=== PATIENT | female | born 1990 | race Caucasian/White ===

== ENCOUNTER → 2019-09-18 | Outpatient (CLI) | payer BC | END | disposition home or self-care (01) | LOC: PREOP 05:42 | PROVIDERS: ATTEND Surgery | DX: Z01.818 Encounter for other preprocedural examination (principal) ==

== ENCOUNTER 2023-07-25 20:56 | Observation (INO) | payer SELFPAY ==
[~2023-07-25] VITALS: Ht 157.5 cm; Wt 80.0 kg
[2023-07-25] MEDS ORDERED: LACTATED RINGERS 1,000 ML 1,000 ML IV ONE (21:45)
[2023-07-25 21:50] LABS: BASOPHILS # (AUTO) 0.1 10^3/uL (0.0-0.1); BASOPHILS % (AUTO) 1 % (0-10); EOSINOPHILS # (AUTO) 0.1 10^3/uL (0.0-0.3); EOSINOPHILS % (AUTO) 0 % (0-10); HEMATOCRIT 46 % (35-52); HEMOGLOBIN 15.1 g/dL (11.5-16.0); LYMPHOCYTES # (AUTO) 2.6 10^3/uL (1.0-4.0); LYMPHOCYTES % (AUTO) 17 % (12-44); MEAN CORPUSCULAR HEMOGLOBIN 28 pg (25-34); MEAN CORPUSCULAR HGB CONC 33 g/dL (32-36); MEAN CORPUSCULAR VOLUME 85 fL (80-99); MEAN PLATELET VOLUME 12.5 fL (9.0-12.2); MONOCYTES # (AUTO) 1.2 10^3/uL (0.0-1.0); MONOCYTES % (AUTO) 8 % (0-12); NEUTROPHILS # (AUTO) 11.3 10^3/uL (1.8-7.8); NEUTROPHILS % (AUTO) 74 % (42-75); PLATELET COUNT 262 10^3/uL (130-400); WHITE BLOOD COUNT 15.3 10^3/uL (4.3-11.0)
[2023-07-25 22:06] LABS: CLARITY,URINE SLIGHTLY CLOUDY; COLOR,URINE ORANGE; GLUCOSE, URINE (UA) NEGATIVE (NEGATIVE); KETONES,URINE TRACE (NEGATIVE); NITRITE,URINE NEGATIVE (NEGATIVE); PH,URINE 5.5 (5-9); PROTEIN,URINE 2+ (NEGATIVE)
[2023-07-25 22:07] LABS: BACTERIA,URINE MODERATE /HPF; BILIRUBIN,URINE 1+ (NEGATIVE); LEUKOCYTE ESTERASE ,URINE TRACE (NEGATIVE); SQUAMOUS EPITHELIAL CELL,UR 0-2 /HPF
[2023-07-25 22:12] LABS: ALANINE AMINOTRANSFERASE 34 U/L (0-55); ALBUMIN 4.4 GM/DL (3.2-4.5); ALKALINE PHOSPHATASE 104 U/L (40-136); BILIRUBIN,TOTAL 0.6 MG/DL (0.1-1.0); BUN/CREATININE RATIO 6; CALCIUM 9.9 MG/DL (8.5-10.1); CARBON DIOXIDE 20 MMOL/L (21-32); CHLORIDE 103 MMOL/L (98-107); CREATININE SERUM 0.96 MG/DL (0.60-1.30); GFR ESTIMATED 81; GLUCOSE 98 MG/DL (70-105); POTASSIUM 3.6 MMOL/L (3.6-5.0); SALICYLATE < 5.0 MG/DL (5.0-20.0); SODIUM 137 MMOL/L (135-145); TOTAL PROTEIN 7.6 GM/DL (6.4-8.2)
[2023-07-25 22:12] LABS: AMPHETAMINE SCREEN, URINE NEGATIVE (NEGATIVE); BARBITURATE SCREEN URINE NEGATIVE (NEGATIVE); CANNABINOID SCREEN, URINE POSITIVE (NEGATIVE); COCAINE SCREEN URINE NEGATIVE (NEGATIVE); METHADONE STAT NEGATIVE (NEGATIVE); OPIATE SCREEN URINE NEGATIVE (NEGATIVE); OXYCODONE STAT NEGATIVE (NEGATIVE); PROPOXYPHENE STAT NEGATIVE (NEGATIVE); TRICYCLIC ANTIDEPRESSANTS SCRE NEGATIVE (NEGATIVE)
[2023-07-25 22:19] LABS: ACETAMINOPHEN < 10 UG/ML (10-30)
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
[2023-07-25 22:32] LABS: TSH (THYROID ANALYZER) 2.16 UIU/ML (0.35-4.94)
[2023-07-25] MEDS ORDERED: cefTRIAXone IV/IM 1,000 MG in NS (IVPB) 50 ML 50 ML IV STA (22:44)
[2023-07-25 22:54] LABS: INR 0.9 (0.8-1.4); PROTHROMBIN TIME PATIENT 12.7 SEC (12.2-14.7)
[2023-07-26] MEDS ORDERED: LACTATED RINGERS 1,000 ML 1,000 ML IV ONE (02:00)
[2023-07-26] MEDS ORDERED: LIDOCAINE 1% INJ 10 ML VIAL ONE (03:13)
[2023-07-26] MEDS ORDERED: cefTRIAXone IV/IM 1,000 MG in NS (IVPB) 50 ML 50 ML IV STA (03:52)
[2023-07-26] MEDS ORDERED: LACTATED RINGERS 1,000 ML 1,000 ML IV SCH (05:15)
[2023-07-26] MEDS ORDERED: ONDANSETRON INJECTION 4 MG/2 ML (SDV) IV PRN ×2 (05:15→11:30)
[2023-07-26 06:55] LABS: EOSINOPHILS % (AUTO) 0 % (0-10); HEMOGLOBIN 13.6 g/dL (11.5-16.0)
[2023-07-26 06:56] LABS: BASOPHILS # (AUTO) 0.1 10^3/uL (0.0-0.1); BASOPHILS % (AUTO) 0 % (0-10); HEMATOCRIT 41 % (35-52); LYMPHOCYTES # (AUTO) 2.7 10^3/uL (1.0-4.0); LYMPHOCYTES % (AUTO) 20 % (12-44); MEAN CORPUSCULAR HEMOGLOBIN 28 pg (25-34); MEAN CORPUSCULAR HGB CONC 33 g/dL (32-36); MEAN CORPUSCULAR VOLUME 85 fL (80-99); MONOCYTES # (AUTO) 1.1 10^3/uL (0.0-1.0); MONOCYTES % (AUTO) 9 % (0-12); NEUTROPHILS # (AUTO) 9.6 10^3/uL (1.8-7.8); NEUTROPHILS % (AUTO) 71 % (42-75); PLATELET COUNT 217 10^3/uL (130-400); WHITE BLOOD COUNT 13.5 10^3/uL (4.3-11.0)
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
[2023-07-26 07:21] LABS: ALBUMIN 3.9 GM/DL (3.2-4.5); BILIRUBIN,TOTAL 0.6 MG/DL (0.1-1.0); CALCIUM 9.1 MG/DL (8.5-10.1); CREATININE SERUM 0.82 MG/DL (0.60-1.30); MAGNESIUM 1.5 MG/DL (1.6-2.4); PHOSPHORUS 2.9 MG/DL (2.3-4.7); POTASSIUM 3.7 MMOL/L (3.6-5.0); TOTAL PROTEIN 6.5 GM/DL (6.4-8.2)
[2023-07-26] MEDS ORDERED: NS IV 500 ML 500 ML IV PRN (07:30)
--- NOTE | 2023-07-26 07:44 | Diagnostic Imaging Report ---
PROCEDURE: CT head without contrast. TECHNIQUE: Multiple contiguous axial images were obtained through the brain without the use of intravenous contrast. Auto Exposure Controls were utilized during the CT exam to meet ALARA standards for radiation dose reduction. INDICATION: Altered mental status. COMPARISON: No prior studies are available for comparison. FINDINGS: The ventricles and sulci are within normal limits. No sulcal effacement or midline shift is identified. No acute intra-axial or extra-axial hemorrhage is detected. The cisterns are patent. The visualized paranasal sinuses demonstrate a small mucous retention cyst or polyp in the left maxillary sinus. IMPRESSION: No acute intracranial process is detected. Dictated by: Dictated on workstation # [id number]
[2023-07-26] MEDS ORDERED: POTASSIUM CHLORIDE 20 MEQ TABLET PO ONE (08:00)
[2023-07-26] MEDS: MAGNESIUM 1 GM/100 ML IVPB 100 ML IV SCH ×3 (08:33→10:27)
[2023-07-26] MEDS ORDERED: LIDOCAINE 1% INJ 20 ML VIAL ONE (10:05)
--- NOTE | 2023-07-26 10:31 | Tele-ICU Progress Note ---
Subjective Date Seen by a Provider: Jul 26, 2023 Time Seen by a Provider: 10:30 Subjective/Events-last exam (Tele-ICU Physician , consultation as per request of PCP Service provided via interactive audio and video telecommunications E-CARE system to a patient admitted to ICU bed in [facility]. Available chart/ vitals / labs / Images reviewed H&P is from ER notes Patient's information available about PMH, Shx, Fhx allergy reviewed inEMR. ROS as per chart and RN report Now in ICU, hemodynamically stable Video assessment done using teleICU camera, rest of exam as per RN Discussed with RN. Hospital course: (07/26) 33yF Admit AMS, UTI. LP attempted X3 in ED but unsucessful ( also found pt in ED with pulse ox cord wrapped tight around neck) 07/26 - LP in ICU planned , A/P altered mental status with paranoid/ ? suicidal ideations - tox + cannabin ,: covid, strep , flu NEG - ?meningitis- low level of suspicious), and LP planned for 07/26 - on Rocephin - sitter - psych eval when other etiology r/o UTI -rosephin Lines : periph , (Central Line Necessity Reviewed) Dumont: OG: Nutrition: Analgesia: Anxiety/ delirium VTE Prophylaxis: sc d Stress Ulcer Prophylaxis: na Plans in collaboration with bedside consultants and IM MDs. Discussed with RN to reach out if any questions or concerns A total of 15 minutes of critical care time was devoted to this patient today, required to treat and/or prevent further deterioration of critical care condition ( as above ) . I am remotely monitoring this patient from another state. I am unable to do the bedside exam, and history/physical and pertinent information is taken from other notes in the computer and bedside staff. . Sepsis Event Evaluation Height, Weight, BMI Height: '" Weight: lbs. oz. kg; 32.24 BMI Method: Focused Exam Lactate Level 07/25/23 23:12: Lactic Acid Level 1.11 Exam Exam Patient acknowledged, consented, and participated in this virtual visit which was conducted using real time audio/video Vital Signs Date Time Temp Pulse Resp B/P (MAP) Pulse Ox O2 Delivery O2 Flow Rate FiO2 07/26/23 10:00 89 9 98 Room Air 07/26/23 09:15 108 12 148/89 (108) 98 Room Air 07/26/23 08:00 36.5 101 18 149/98 (115) 97 Room Air 07/26/23 07:26 75 07/26/23 07:10 99 16 138/93 (108) 98 Room Air 07/26/23 06:00 95 24 161/84 (106) 97 Room Air 07/26/23 05:30 101 9 163/91 (109) 97 Room Air 07/26/23 05:23 94 9 166/104 (125) 98 Room Air 07/26/23 05:12 37.2 Room Air 07/26/23 05:02 110 07/26/23 05:01 113 149/105 (120) 99 Room Air 07/26/23 05:00 Room Air 07/26/23 04:42 37.1 106 16 124/83 98 Room Air 07/25/23 21:08 36.5 114 20 146/89 (108) 97 I & O 07/26/23 07:00 Intake Total 2300 ml Output Total 800 ml Balance 1500 ml Height & Weight Height: '" Weight: lbs. oz. kg; 32.24 BMI Method: General Appearance: Other Gastrointestinal: non tender, soft Results Lab Laboratory Tests 07/25/23 21:40 07/26/23 05:08 Assessment/Plan Assessment/Plan 1 JEREMIAH ALONSO MD Jul 26, 2023 10:31
--- NOTE | 2023-07-26 10:34 | Anesthesia-Procedure Note ---
Procedures/Interventions Procedure Start/Stop/Diagnosis Date of Procedure: Jul 26, 2023 Start Time: 10:00 Brief History Altered mental status Stop Time: 10:25 Lumbar Puncture Discussed Risk,Benefits: Yes Patient Consents: Yes (Patient not oriented. Medically necessary. Consent obtianed by ED DrMatt ) Position: Lying, Left Sterile Technique: Yes Opening Pressure: 19.75 Fluid Color: clear Spinal Needle Used: 20g Quinke 3 1/2inch Procedure Notes Attempts x 2 First attempt with 22g pencan. Patient Jumped when felt parasthesia down left leg. Needle with drawn and was bent making it unusable. 2nd attempt with [address]g [address] without any parathesia. CHEVY DAWKINS CRNA Jul 26, 2023 10:34
[2023-07-26 11:01] LABS: RED BLOOD CELL,CSF 0.001 10^6/uL (0-0); WHITE BLOOD CELL,CSF 0.001 10^3/uL (0-0.005)
[2023-07-26 11:04] LABS: APPEARANCE,CSF CLEAR; COLOR,CSF COLORLESS; CSF TUBE NUMBER 4
[2023-07-26 11:21] LABS: CSF GLUCOSE 65 MG/DL (50-80); CSF TOTAL PROTEIN 28 MG/DL (15-40)
[2023-07-26] MEDS ORDERED: ONDANSETRON 4 MG ORAL DISSOLVE TABLET PO PRN (11:30)
[2023-07-26] MEDS ORDERED: CALCIUM CARBONATE 500 MG CHEW TABLET PO PRN (11:30)
[2023-07-26] MEDS ORDERED: diphenhydrAMINE INJ 50 MG/ML VIAL IVP PRN (11:30)
[2023-07-26] MEDS ORDERED: MILK OF MAGNESIA 400 MG/5 ML 30 ML UDC PO PRN (11:30)
[2023-07-26] MEDS ORDERED: BISACODYL 10 MG SUPPOSITORY PR PRN (11:30)
[2023-07-26] MEDS ORDERED: ANTACID SUSPENSION 30 ML UDC PO PRN (11:30)
[2023-07-26] MEDS ORDERED: oxyCODONE IMMEDIATE RELEASE 5 MG TABLET PO PRN (11:30)
[2023-07-26] MEDS ORDERED: MELATONIN 3 MG TABLET PO PRN (11:30)
[2023-07-26] MEDS ORDERED: LACTULOSE SYRUP 10GM/15ML 30ML UDC PO PRN (11:30)
[2023-07-26] MEDS ORDERED: ACETAMINOPHEN 325 MG TABLET PO PRN (11:30)
[2023-07-26] MEDS ORDERED: HYDROmorphone INJECTION 2 MG/ML VIAL IV PRN (11:30)
[2023-07-26] MEDS ORDERED: diphenhydrAMINE 25 MG TABLET PO PRN (11:30)
[2023-07-26] MEDS: ENOXAPARIN 40 MG/0.4 ML SYRINGE SC SCH (12:20)
[2023-07-26 15:51] VITALS: BP 142/91
[2023-07-26] MEDS: cefTRIAXone 2,000 MG/NS 50 ML IVPB IV SCH ×2 (15:54)
[2023-07-26 19:45] VITALS: BP 143/102
[2023-07-26] MEDS: SENNOSIDES 8.6 MG TABLET PO SCH (21:03)
[2023-07-26] MEDS: DOCUSATE SODIUM 100 MG CAPSULE PO SCH (21:03)
[2023-07-26 23:52] VITALS: BP 148/97
[2023-07-27] MEDS: cefTRIAXone 2,000 MG/NS 50 ML IVPB IV SCH ×2 (04:07)
[2023-07-27 04:08] VITALS: BP 134/87
[2023-07-27 05:27] LABS: BASOPHILS # (AUTO) 0.1 10^3/uL (0.0-0.1); BASOPHILS % (AUTO) 1 % (0-10)
[2023-07-27 05:29] LABS: EOSINOPHILS # (AUTO) 0.1 10^3/uL (0.0-0.3); EOSINOPHILS % (AUTO) 1 % (0-10); HEMATOCRIT 46 % (35-52); LYMPHOCYTES # (AUTO) 2.8 10^3/uL (1.0-4.0); LYMPHOCYTES % (AUTO) 21 % (12-44); MEAN CORPUSCULAR HEMOGLOBIN 28 pg (25-34); MEAN CORPUSCULAR HGB CONC 32 g/dL (32-36); MEAN CORPUSCULAR VOLUME 86 fL (80-99); MONOCYTES # (AUTO) 1.1 10^3/uL (0.0-1.0); MONOCYTES % (AUTO) 8 % (0-12); NEUTROPHILS % (AUTO) 69 % (42-75); PLATELET COUNT 222 10^3/uL (130-400); WHITE BLOOD COUNT 13.1 10^3/uL (4.3-11.0)
[2023-07-27] MEDS ORDERED: POTASSIUM CHLORIDE 20 MEQ TABLET PO SCH (06:00)
[2023-07-27] MEDS ORDERED: MAGNESIUM 1 GM/100 ML IVPB 100 ML IV SCH (06:00)
[2023-07-27] MEDS ORDERED: POTASSIUM CL 10MEQ/50ML IVPB 50 ML IV SCH (06:00)
[2023-07-27 06:06] LABS: ALBUMIN 4.4 GM/DL (3.2-4.5); BILIRUBIN,TOTAL 0.6 MG/DL (0.1-1.0); CALCIUM 9.5 MG/DL (8.5-10.1); CREATININE SERUM 0.82 MG/DL (0.60-1.30); POTASSIUM 3.8 MMOL/L (3.6-5.0); TOTAL PROTEIN 7.5 GM/DL (6.4-8.2)
[2023-07-27 07:15] VITALS: BP 131/74
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
[2023-07-27 12:00] VITALS: BP 159/95
[2023-07-27] MEDS: ENOXAPARIN 40 MG/0.4 ML SYRINGE SC SCH (14:41)
[2023-07-27 16:54] VITALS: BP 137/86
[2023-07-27] MEDS: DOCUSATE SODIUM 100 MG CAPSULE PO SCH (19:21)
[2023-07-27] MEDS: SENNOSIDES 8.6 MG TABLET PO SCH (19:21)
[2023-07-27 20:54] VITALS: BP 131/94
[2023-07-28] VITALS (7 sets, daily range): BP systolic 114–172; BP diastolic 69–94
[2023-07-28 06:55] LABS: BASOPHILS # (AUTO) 0.1 10^3/uL (0.0-0.1); BASOPHILS % (AUTO) 1 % (0-10); EOSINOPHILS % (AUTO) 0 % (0-10); HEMATOCRIT 46 % (35-52); HEMOGLOBIN 15.2 g/dL (11.5-16.0); LYMPHOCYTES # (AUTO) 2.3 10^3/uL (1.0-4.0); LYMPHOCYTES % (AUTO) 20 % (12-44); MEAN CORPUSCULAR HEMOGLOBIN 28 pg (25-34); MEAN CORPUSCULAR HGB CONC 33 g/dL (32-36); MEAN CORPUSCULAR VOLUME 85 fL (80-99); MEAN PLATELET VOLUME 12.5 fL (9.0-12.2); MONOCYTES # (AUTO) 1.1 10^3/uL (0.0-1.0); MONOCYTES % (AUTO) 9 % (0-12); NEUTROPHILS # (AUTO) 8.2 10^3/uL (1.8-7.8); NEUTROPHILS % (AUTO) 70 % (42-75); PLATELET COUNT 267 10^3/uL (130-400); WHITE BLOOD COUNT 11.7 10^3/uL (4.3-11.0)
[2023-07-28 07:18] LABS: ALANINE AMINOTRANSFERASE 28 U/L (0-55); ALBUMIN 4.6 GM/DL (3.2-4.5); ALKALINE PHOSPHATASE 102 U/L (40-136); BILIRUBIN,TOTAL 0.7 MG/DL (0.1-1.0); BUN/CREATININE RATIO 7; CALCIUM 9.8 MG/DL (8.5-10.1); CARBON DIOXIDE 20 MMOL/L (21-32); CHLORIDE 104 MMOL/L (98-107); CREATININE SERUM 0.85 MG/DL (0.60-1.30); GFR ESTIMATED 94; GLUCOSE 100 MG/DL (70-105); MAGNESIUM 1.7 MG/DL (1.6-2.4); POTASSIUM 3.9 MMOL/L (3.6-5.0); SODIUM 137 MMOL/L (135-145); TOTAL PROTEIN 7.7 GM/DL (6.4-8.2)
[2023-07-28] MEDS: DOCUSATE SODIUM 100 MG CAPSULE PO SCH (09:02)
[2023-07-28] MEDS: SENNOSIDES 8.6 MG TABLET PO SCH (09:07)
[2023-07-28] MEDS ORDERED: NORE0.3520 PO (10:02)
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
--- NOTE | 2023-07-28 12:43 | Discharge Summary ---
Discharge Summary Hospital Course Was the Problem List Reviewed?: Yes Problems/Dx: (1) Acute psychosis Hospital Course Date of Admission: Jul 26, 2023 at 04:34 Admission Diagnosis : Family Physician/Provider: Lizeth Anne Aprn Date of Discharge: 07/28/23 Discharge Diagnosis: [ ] Hospital Course: Patient had a standard hospital course after she was admitted for altered mental status and work-up including lumbar puncture was all negative but she appeared to have acute psychosis without previous history of mental illness except for mild depression and anxiety. [facility] condition. Labs and Pending Lab Test: Laboratory Tests 07/28/23 06:45: White Blood Count 11.7H, Red Blood Count 5.38H, Hemoglobin 15.2, Hematocrit 46, Mean Corpuscular Volume 85, Mean Corpuscular Hemoglobin 28, Mean Corpuscular Hemoglobin Concent 33, Red Cell Distribution Width 14.3, Platelet Count 267, Mean Platelet Volume 12.5H, Immature Granulocyte % (Auto) 0, Neutrophils (%) (Auto) 70, Lymphocytes (%) (Auto) 20, Monocytes (%) (Auto) 9, Eosinophils (%) (Auto) 0, Basophils (%) (Auto) 1, Neutrophils # (Auto) 8.2H, Lymphocytes # (Auto) 2.3, Monocytes # (Auto) 1.1H, Eosinophils # (Auto) 0.0, Basophils # (Auto) 0.1, Immature Granulocyte # (Auto) 0.0, Sodium Level 137, Potassium Level 3.9, Chloride Level 104, Carbon Dioxide Level 20L, Anion Gap 13, Blood Urea Nitrogen 6L, Creatinine 0.85, Estimat Glomerular Filtration Rate 94, BUN/Creatinine Ratio 7, Glucose Level 100, Calcium Level 9.8, Corrected Calcium , Magnesium Level 1.7, Total Bilirubin 0.7, Aspartate Amino Transf (AST/SGOT) 22, Alanine Aminotransferase (ALT/SGPT) 28, Alkaline Phosphatase 102, Total Protein 7.7, Albumin 4.6H Microbiology 07/26/23 Gram Stain - Final, Resulted 07/26/23 CSF Culture - Preliminary, Resulted No growth 07/26/23 MRSA Screen - Final, Complete MRSA not isolated 07/25/23 Blood Culture - Preliminary, Resulted Gram Positive Cocci in Cluster See Comments 07/25/23 Urine Culture - Final, Complete Gram Pos Mixed Bacterial Marielena See Comments Home Meds Active Reported Norethindrone 0.35 Mg Tablet 1 Ea PO DAILY Assessment/Pt Instructions Psych hospital Discharge Planning: <30 minutes discharge planning Discharge Physical Examination Vital Signs Vital Signs Date Time Temp Pulse Resp B/P (MAP) Pulse Ox O2 Delivery O2 Flow Rate FiO2 07/28/23 09:00 36.4 95 18 138/88 (105) 97 Room Air General Appearance: No Apparent Distress, WD/WN, Anxious Allergies: Coded Allergies: No Known Drug Allergies (Unverified , 07/25/23) Discharge Summary Date of Admission Jul 26, 2023 at 04:34 Date of Discharge Discharge Date: Jul 28, 2023 Admission Diagnosis Assessment: Confusion of unknown source s/p LP Acute psychosis Suicidal threats Plan[facility] one-on-one sitter Psych eval Discharge Diagnosis Assessment: Acute psychosis Plan: Await JACKIE Arechiga DO Jul 28, 2023 12:43
[2023-07-28] MEDS: ENOXAPARIN 40 MG/0.4 ML SYRINGE SC SCH (12:45)
[2023-07-29] MEDS ORDERED: NORETHINDRONE PO SCH (09:00)
== END 2023-07-28 15:19 ==
LOC: EDUNIT# 20:56 → ER 20:59 → ICU 21:00 → UNDOADMOB 07-26 04:34 → ICU 07-26 04:34 → 4TH 07-27 04:36 → UNDODISOB 07-28 15:19
PROVIDERS: ADMIT Internal Medicine; ATTEND Internal Medicine
DX: R41.0 Disorientation, unspecified (principal); F23 Brief psychotic disorder; R45.851 Suicidal ideations; N39.0 Urinary tract infection, site not specified; A41.9 Sepsis, unspecified organism
CPT/HCPCS: 62270; 70450; 80053 ×4; 80306; 81000; 82945; 83605; 83735 ×3; 84100; 84157; 84443; 84703; 85025 ×4; 85610; 85652; 85730; 86141 ×2; 87040; 87070; 87077; 87081; 87088; 87205; 87430; 87636; 89051; 93005; 93041; 96361 ×2; 96366; 96372 ×2; 96374; 96375; 96376 ×3; 99285; G0378 ×2; G0480 ×3; 36415; 80320; 80329